=== PATIENT | male | born 1950 | race Caucasian/White ===

== ENCOUNTER 2019-05-23 00:37 | Emergency (ER) | payer BC ==
[~2019-05-23] VITALS: Ht 172.7 cm; Wt 78.0 kg
[2019-05-23 00:50] VITALS: BP_SYST 144
--- NOTE | 2019-05-23 01:04 | NUR ---
Patient to ER bed 03 to gown for evaluation. Side rails up. Report given to GEO Muller
--- NOTE | 2019-05-23 01:30 | NUR ---
Dr. Espinosa bedside for Pt eval
--- NOTE | 2019-05-23 02:00 | NUR ---
Pt BIB family to ED C/O catheter pain, s/p robotic assisted laparoscopic left inguinal hernia repair with mesh. Pt attempt to video document most of ER visit as a way to have evidence against [facility] Out[facility] Surgery service. No other complaints and or injuries noted VSS no s/s of acute distress Resting on gurney rails up
--- NOTE | 2019-05-23 02:40 | NUR ---
Pt taken to Radiology in stable condition
--- NOTE | 2019-05-23 03:00 | NUR ---
Pt back from Radiology, well tolerated
--- NOTE | 2019-05-23 03:15 | NUR ---
Pt's family / roomate bedside for emotional support
--- NOTE | 2019-05-23 03:39 | NUR ---
VSS no s/s of acute distress. Resting on gurney rails up
[2019-05-23] MEDS ORDERED: MORPHINE 4 MG/ML INJ. SYRINGE IM ONE (04:00)
[2019-05-23] MEDS ORDERED: MORPHINE 4 MG/ML INJ. SYRINGE ONE (04:12)
--- NOTE | 2019-05-23 04:30 | NUR ---
VSS no s/s of acute distress. Resting on gurney rails up
[2019-05-23 05:20] VITALS: BP_SYST 142
--- NOTE | 2019-05-23 05:20 | NUR ---
Patient given written and verbal discharge instructions and verbalizes understanding. ER MD discussed with patient the results and treatment provided. Patient in stable condition. ID arm band removed. Patient educated on pain management and to follow up with PMD. Pain Scale 0/10 Opportunity for questions provided and answered.
== END 2019-05-23 05:20 | disposition home or self-care (01) ==
LOC: SED 00:37
DX: T83.098A Other mechanical complication of other urinary catheter, initial encounter (principal); N40.0 Benign prostatic hyperplasia without lower urinary tract symptoms; Z88.0 Allergy status to penicillin
CPT/HCPCS: 74176; 96372; 99284; J2270